=== PATIENT | female | born 1965 | race Caucasian/White ===

== ENCOUNTER 2019-10-18 20:28 | Emergency (ER) | payer BC ==
[2019-10-18] MEDS ORDERED: Ondansetron 4 MG/2 ML SDV IVPUSH ONE (20:31)
[2019-10-18] MEDS ORDERED: Sodium Chloride 0.9% 1,000 ML IV ONE (20:31)
[2019-10-18] MEDS ORDERED: Sodium Chloride 0.9% 10 ML Syringe FLUSH PRN (20:31)
[2019-10-18] MEDS ORDERED: Ketorolac 30 MG/ML SDV IVPUSH ONE (20:31)
[2019-10-18] MEDS ORDERED: diphenhydrAMINE 50 MG/ML SDV IVPUSH ONE (20:31)
--- NOTE | 2019-10-18 20:36 | EDM.PDOC ---
ED HPI GENERAL MEDICAL PROBLEM - General Chief Complaint: Headache Stated Complaint: MIGRAINE Time Seen by Provider: 10/18/19 20:28 Source of Information: Reports: Patient History Limitations: Reports: No Limitations - History of Present Illness INITIAL COMMENTS - FREE TEXT/NARRATIVE: 53 YO WF WITH PMH OF MIGRAINE HEADACHES PRESENTS TO ER WITH LEFT SIDED HEADACHE WHICH BEGAN THIS AM. PT REPORTS SHE TOOK HER MAXALT X 2 THIS AM WITHOUT RELIEF. PT REPORTS SHE HAS BEEN GETTING WEEKLY MIGRAINES OVER THE LAST FEW MONTHS AND STATES SHE HAS TRIED MULTIPLE DIFFERENT MIGRAINE ADJUNCTS IN THE PAST WITHOUT RESOLUTION. PT REPORTS ASSOCIATED NAUSEA WITHOUT VOMITING. PT DENIES FEVER/CHILLS, NO COUGH/CONGESTION, NO WEAKNESS OR VISUAL CHANGES, NO CHEST PAIN OR SHORTNESS OF BREATH. Onset: Today Location: Reports: Head Quality: Reports: Ache Severity: Moderate Improves with: Reports: None Worsens with: Reports: None Associated Symptoms: Reports: No Other Symptoms, Headaches, Nausea/Vomiting. Denies: Confusion, Chest Pain, Cough, Fever/Chills, Rash, Seizure, Shortness of Breath, Syncope, Weakness - Related Data Allergies Allergy/AdvReac Type Severity Reaction Status Date / Time erythromycin base Allergy Indigestion Verified 04/07/19 12:45 [Erythromycin Base] Home Meds: Home Meds Levothyroxine Sodium [Synthroid] 125 mcg PO DAILY 02/08/13 [History] Topiramate [Topamax] 50 mg PO BEDTIME 12/06/14 [History] Butalbit/Acetamin/Caff/Codeine [Sgnqbk-Ysnfxxumiit-Wkze-Codein] 1 cap PO ASDIRECTED 11/21/18 [History] Cyclobenzaprine [Flexeril] 10 mg PO BEDTIME 11/21/18 [History] Venlafaxine [Venlafaxine HCl ER] 300 mg PO BEDTIME 11/21/18 [History] Adalimumab [Humira Pen] 40 mg SUBCUT ASDIRECTED 04/07/19 [History] Ibuprofen 400 mg PO Q6H PRN 04/07/19 [History] SUMAtriptan succinate [Imitrex] 25 mg PO ASDIRECTED PRN 04/07/19 [History] Past Medical History HEENT History: Reports: Impaired Vision Musculoskeletal History: Reports: RA Neurological History: Reports: Migraines Psychiatric History: Reports: Depression Endocrine/Metabolic History: Reports: Hypothyroidism Dermatologic History: Reports: Other (See Below) Other Dermatologic History: arthritis with skin involvement - Past Surgical History GI Surgical History: Reports: Colon, Colonoscopy, Other (See Below) Other GI Surgeries/Procedures: colon surgery in june 2018 for resection and tumor removal. Social & Family History - Caffeine Use Caffeine Use: Reports: None - Living Situation & Occupation Living situation: Reports: with Significant Other Occupation: Employed ED ROS GENERAL - Review of Systems Review Of Systems: See Below Constitutional: Reports: No Symptoms HEENT: Reports: No Symptoms Respiratory: Reports: No Symptoms Cardiovascular: Reports: No Symptoms Endocrine: Reports: No Symptoms GI/Abdominal: Reports: Nausea : Reports: No Symptoms Musculoskeletal: Reports: No Symptoms Skin: Reports: No Symptoms Neurological: Reports: Headache. Denies: Confusion, Dizziness, Numbness, Paresthesia, Pre-Existing Deficit, Seizure, Syncope, Tingling, Trouble Speaking, Weakness, Change in Speech, Gait Disturbance Psychiatric: Reports: No Symptoms Hematologic/Lymphatic: Reports: No Symptoms Immunologic: Reports: No Symptoms - Physical Exam Exam: See Below Exam Limited By: No Limitations General Appearance: Alert, WD/WN, Mild Distress Eye Exam: Bilateral Eye: EOMI, PERRL Throat/Mouth: Normal Inspection, Normal Lips, Normal Teeth, Normal Gums, Normal Oropharynx, Normal Voice, No Airway Compromise Head Exam: Atraumatic, Normocephalic Neck: Normal Inspection, Supple, Non-Tender, Full Range of Motion Respiratory/Chest: No Respiratory Distress, Lungs Clear, Normal Breath Sounds, No Accessory Muscle Use, Chest Non-Tender Cardiovascular: Normal Peripheral Pulses, Regular Rate, Rhythm, No Edema, No Gallop, No JVD, No Murmur, No Rub GI/Abdominal: Normal Bowel Sounds, Soft, Non-Tender, No Organomegaly, No Disten tion, No Abnormal Bruit, No Mass Neuro Exam (Abbreviated): Alert, Oriented, CN II-XII Intact, Normal Cognition, Normal Gait, Normal Reflexes, No Motor/Sensory Deficits Extremities: Normal Inspection, Normal Range of Motion, Non-Tender, No Pedal Edema, Normal Capillary Refill Psychiatric: Normal Affect, Normal Mood Skin Exam: Warm, Dry, Intact, Normal Color, No Rash Course - Orders/Labs/Meds Orders: Active Orders 24 hr Category Date Time Status Peripheral IV Care [RC] . DIRECTED Care 10/18/19 20:31 Active Sodium Chloride 0.9% [Normal Saline] 1,000 ml Med 10/18/19 20:31 Active IV .BOLUS Sodium Chloride 0.9% [Saline Flush] Med 10/18/19 20:31 Active 10 ml FLUSH Q8HR PRN Peripheral IV Insertion Adult [OM.PC] Routine Oth 10/18/19 20:31 Ordered Medication Orders Sodium Chloride (Normal Saline) 1,000 mls @ 999 mls/hr IV .BOLUS ONE Stop: 10/18/19 21:31 Sodium Chloride (Saline Flush) 10 ml FLUSH Q8HR PRN PRN Reason: keep vein open Meds: Medications Generic Name Dose Route Start Last Admin Trade Name Freq PRN Reason Stop Dose Admin Sodium Chloride 1,000 mls @ 999 mls/hr 10/18/19 20:31 Normal Saline IV 10/18/19 21:31 .BOLUS ONE Sodium Chloride 10 ml 10/18/19 20:31 Saline Flush FLUSH Q8HR PRN keep vein open Discontinued Medications Generic Name Dose Route Start Last Admin Trade Name Freq PRN Reason Stop Dose Admin Diphenhydramine HCl 50 mg 10/18/19 20:31 Benadryl IVPUSH 10/18/19 20:32 ONETIME ONE Ketorolac Tromethamine 30 mg 10/18/19 20:31 Toradol IVPUSH 10/18/19 20:32 ONETIME ONE Ondansetron HCl 4 mg 10/18/19 20:31 Zofran IVPUSH 10/18/19 20:32 ONETIME ONE - Radiology Interpretation Free Text/Narrative:: HEADACHE IMPROVED AFTER MEDICATION AND FLUIDS. PT ALERT AND ORIENTED X 4, AFEBRILE, NONTOXIC APPEARANCE. PT WILL BE DISCHARGED HOME. PT IS AGREEABLE WITH PLAN OF CARE Departure - Departure Time of Disposition: 21:44 Disposition: Home, Self-Care 01 Condition: Good Clinical Impression: Migraine - Discharge Information Instructions: Migraine Headache, [id number] Forms: ED Department Discharge Additional Instructions: 1. DISCHARGE HOME 2. PLENTY OF FLUIDS 3. FOLLOW UP WITH PCP FOR FURTHER EVALUATION AND TREATMENT 4. RECOMMEND HEADACHE SPECIALIST 5. RETURN TO ER FOR WORSENING SYMPTOMS - My Orders Last 24 Hours: My Active Orders 10/18/19 20:31 Peripheral IV Care [RC] . DIRECTED Sodium Chloride 0.9% [Normal Saline] 1,000 ml IV .BOLUS Sodium Chloride 0.9% [Saline Flush] 10 ml FLUSH Q8HR PRN Peripheral IV Insertion Adult [OM.PC] Routine - Assessment/Plan Last 24 Hours: My Active Orders 10/18/19 20:31 Peripheral IV Care [RC] . DIRECTED Sodium Chloride 0.9% [Normal Saline] 1,000 ml IV .BOLUS Sodium Chloride 0.9% [Saline Flush] 10 ml FLUSH Q8HR PRN Peripheral IV Insertion Adult [OM.PC] Routine Assessment:: 1. MIGRAINE HEADACHES Plan: 1. DISCHARGE HOME 2. PLENTY OF FLUIDS 3. FOLLOW UP WITH PCP FOR FURTHER EVALUATION AND TREATMENT 4. RECOMMEND HEADACHE SPECIALIST 5. RETURN TO ER FOR WORSENING SYMPTOMS
[2019-10-18] MEDS ORDERED: Ondansetron 4 MG Tab.DIS PO ONE (21:48)
[2019-10-19 03:08] VITALS: BP 135/84; PULSE 79
[2019-10-19] MEDS ORDERED: Ondansetron 4 MG Tab.DIS ONE (03:38)
== END 2019-10-18 22:00 | disposition home or self-care (01) ==
LOC: KA.ED 20:28
DX: G43.909 Migraine, unspecified, not intractable, without status migrainosus (principal); F32.9 Major depressive disorder, single episode, unspecified; E03.9 Hypothyroidism, unspecified; M06.9 Rheumatoid arthritis, unspecified; Z79.899 Other long term (current) drug therapy; Z88.1 Allergy status to other antibiotic agents
CPT/HCPCS: 96361; 96374; 96375; 99283; 99283-25; J1200; J1885; J2405; J7030